=== PATIENT | female | born 1935 | race Caucasian/White ===

== ENCOUNTER → 2016-09-12 | Outpatient (CLI) | payer OTHER | LOC: BMCIMAGING 13:18 | PROVIDERS: ATTEND Internal Medicine | DX: Z12.31 Encounter for screening mammogram for malignant neoplasm of breast (principal); Z80.3 Family history of malignant neoplasm of breast | CPT/HCPCS: G0202 ==

== ENCOUNTER → 2016-09-14 | Outpatient (CLI) | payer OTHER | LOC: BMCIMAGING 09:24 | PROVIDERS: ATTEND Internal Medicine | DX: N60.02 Solitary cyst of left breast (principal) | CPT/HCPCS: 76641; G0206 ==

== ENCOUNTER → 2017-07-12 | Outpatient (CLI) | payer OTHER ==
[~2017-07-12] MED LIST: IOPAMIDOL (ISOVUE 370) 100 ML BTL IV ONE
== END ==
LOC: FIMAGING 14:36
PROVIDERS: ATTEND Internal Medicine
DX: R07.9 Chest pain, unspecified (principal); R06.02 Shortness of breath; R59.0 Localized enlarged lymph nodes; R91.8 Other nonspecific abnormal finding of lung field
CPT/HCPCS: 71275; Q9967

== ENCOUNTER → 2017-09-14 | Outpatient (CLI) | payer OTHER | LOC: BMCIMAGING 13:42 | PROVIDERS: ATTEND Internal Medicine | DX: Z12.31 Encounter for screening mammogram for malignant neoplasm of breast (principal) ==

== ENCOUNTER → 2017-10-19 | Outpatient (CLI) | payer OTHER | LOC: FIMAGING 14:52 → EEVIPCON 15:30 | PROVIDERS: ATTEND Internal Medicine | DX: R59.0 Localized enlarged lymph nodes (principal) ==

== ENCOUNTER → 2018-01-11 | Outpatient (CLI) | payer OTHER | LOC: BMCIMAGING 09:53 | PROVIDERS: ATTEND Physician Assistant | DX: M16.0 Bilateral primary osteoarthritis of hip (principal) ==

== ENCOUNTER → 2018-01-12 | Outpatient (CLI) | payer OTHER | LOC: FIMAGING 11:29 | PROVIDERS: ATTEND Physician Assistant | DX: M25.561 Pain in right knee (principal); M23.200 Derangement of unspecified lateral meniscus due to old tear or injury, right knee; M23.341 Other meniscus derangements, anterior horn of lateral meniscus, right knee ==

== ENCOUNTER 2018-02-01 12:09 | Emergency (ER) | payer OTHER ==
--- NOTE | 2018-02-01 13:29 | EDPHY ---
H & P Stated Complaint: Diarrhea with scant blood x 1week after colonoscopy, denies pain. Time Seen by Provider: 02/01/18 13:29 HPI/ROS: CHIEF COMPLAINT: Diarrhea, scant hematochezia following colonoscopy HISTORY OF PRESENT ILLNESS: Patient presents the ED with diarrhea for the past several days with a scant amount of hematochezia. She denies significant abdominal pain. The patient denies any vomiting or hematemesis. The patient reports her colonoscopy was uneventful aside from the removal of 1 polyp. She denies any respiratory symptoms. She denies additional acute complaints. 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 REVIEW OF SYSTEMS: A comprehensive 10 point review of systems is otherwise negative aside from elements mentioned in the history of present illness. Source: Patient - Personal History Current Tetanus/Diphtheria Vaccine: No - Medical/Surgical History Hx Asthma: No Hx Chronic Respiratory Disease: No Hx Diabetes: No Hx Cardiac Disease: No Hx Renal Disease: No Hx Cirrhosis: No Hx Alcoholism: No Hx HIV/AIDS: No Hx Splenectomy or Spleen Trauma: No Other PMH: hypothyroid, HCL. cholecystectomy, hernia repair - Social History Smoking Status: Former smoker - Physical Exam Exam: General Appearance: Alert, no distress Eyes: Pupils equal and round no pallor or injection ENT, Mouth: Mucous membranes moist Respiratory: There are no retractions, lungs are clear to auscultation Cardiovascular: Regular rate and rhythm Gastrointestinal: Minimal tenderness to palpation left lower quadrant, no peritoneal signs, no guarding Neurological: 5/5 strength all 4 extremities Skin: Warm and dry, no rashes Musculoskeletal: Neck is supple nontender Extremities: symmetrical, full range of motion Constitutional: Initial Vital Signs Temperature (C) 36.4 C 02/01/18 12:17 Heart Rate 72 02/01/18 12:17 Respiratory Rate 16 02/01/18 12:17 Blood Pressure 145/80 H 02/01/18 12:17 O2 Sat (%) 95 02/01/18 12:17 O2 Delivery Mode Room Air Allergies/Adverse Reactions: No Known Allergies Allergy (Verified 02/01/18 12:16) Home Medications: Medication Instructions Recorded Atorvastatin Calcium [Lipitor 20 20 mg PO DAILY@18 09/30/15 mg (*)] Levothyroxine [Synthroid 50 mcg 50 mcg PO DAILY06 09/30/15 (*)] Cholecalciferol Vit D3 [Vitamin D3 2,000 units PO DAILY 11/26/15 2000 units tab (OTC)] Herbals/Supplements -Info Only 1 ea PO DAILY 11/26/15 Multivitamins [Multivitamin (*)] 1 each PO DAILY 11/26/15 Trinity-3 Fatty Acids [Fish Oil 1000 2,000 mg PO DAILY 11/26/15 mg (*)] Timolol 0.5% [TIMOPTIC 0.5% (*)] 1 drops LEFTEYE BID 11/26/15 Vitamin B Complex [B Complex] 1 each PO DAILY 11/26/15 Eliquis 02/01/18 Medical Decision Making ED Course/Re-evaluation: The patient presents to the ED with several days of diarrhea. The patient thought she may have notice some blood. She has no complaints of pain. She has minimal tenderness on exam. Laboratory testing is unremarkable. The patient is heme-negative from below. At this point time I do feel the patient can use Imodium as needed for management of her symptoms. The patient will be discharged home with instructions to return to the ED increasing pain, increasing bleeding or other concerns. The patient was unable to produce a diarrheal stool sample after 3 hr in the ED. She will be discharged home with a lab slip and specimen cup 3:00 p.m.: Patient is re-evaluated in I find her abdominal examination to be benign. She would like to be discharged home and follow up with her primary care provider. Differential Diagnosis: Differential diagnosis considered includes diverticulitis, perforation, abscess , lower GI bleed - Data Points Laboratory Results: Laboratory Results 02/01/18 13:46 02/01/18 13:46 02/01/18 02/01/18 02/01/18 14:34 13:46 13:46 WBC 11.83 10^3/uL H 10^3/uL (3.80-9.50) RBC 4.59 10^6/uL 10^6/uL (4.18-5.33) Hgb 14.6 g/dL g/dL (12.6-16.3) Hct 42.7 % % (38.0-47.0) MCV 93.0 fL fL (81.5-99.8) MCH 31.8 pg pg (27.9-34.1) MCHC 34.2 g/dL g/dL (32.4-36.7) RDW 13.2 % % (11.5-15.2) Plt Count 221 10^3/uL 10^3/uL (150-400) MPV 11.1 fL fL (8.7-11.7) Neut % (Auto) 73.5 % % (39.3-74.2) Lymph % (Auto) 16.4 % % (15.0-45.0) Shannon % (Auto) 8.0 % % (4.5-13.0) Eos % (Auto) 1.4 % % (0.6-7.6) Baso % (Auto) 0.4 % % (0.3-1.7) Nucleat RBC Rel Count 0.0 % % (0.0-0.2) Absolute Neuts (auto) 8.69 10^3/uL H 10^3/uL (1.70-6.50) Absolute Lymphs (auto) 1.94 10^3/uL 10^3/uL (1.00-3.00) Absolute Monos (auto) 0.95 10^3/uL H 10^3/uL (0.30-0.80) Absolute Eos (auto) 0.17 10^3/uL 10^3/uL (0.03-0.40) Absolute Basos (auto) 0.05 10^3/uL 10^3/uL (0.02-0.10) Absolute Nucleated RBC 0.00 10^3/uL 10^3/uL (0-0.01) Immature Gran % 0.3 % % (0.0-1.1) Immature Gran # 0.03 10^3/uL 10^3/uL (0.00-0.10) Sodium 140 mEq/L mEq/L (135-145) Potassium 4.0 mEq/L mEq/L (3.3-5.0) Chloride 112 mEq/L H mEq/L (97-110) Carbon Dioxide 20 mEq/l L mEq/l (22-31) Anion Gap 8 mEq/L mEq/L (6-14) BUN 15 mg/dL mg/dL (7-23) Creatinine 0.8 mg/dL mg/dL (0.6-1.0) Estimated GFR > 60 Glucose 93 mg/dL mg/dL (70-100) Calcium 10.3 mg/dL mg/dL (8.5-10.4) Stool Occult Bld Scrn NEGATIVE (NEGATIVE) Departure - Departure Disposition: Home, Routine, Self-Care Clinical Impression: Diarrhea Condition: Good Instructions: Acute Diarrhea (ED) Additional Instructions: 1. Please return to the emergency department for any increasing pain, heavy bleeding or other concerns. 2. Please take Imodium as prescribed. 3. Please follow-up with your primary care provider for a recheck in the next 3- 4 days. 4. If you are able to collect a sample of diarrhea please bring it back to the lab with the prescription you have been given for formal testing. 5. Please have Dr. Camargo check the results of this study 1 day after you submit it. Referrals: Lexus Camargo MD [Primary Care Provider] - As per Instructions
[2018-02-01 14:06] LABS: PLATELET COUNT 221 10^3/uL (150-400)
[2018-02-01 15:09] VITALS: BP 137/67
== END 2018-02-01 15:08 | disposition home or self-care (01) ==
DX: R19.7 Diarrhea, unspecified (principal); K92.1 Melena

== ENCOUNTER → 2018-09-20 | Outpatient (CLI) | payer OTHER | LOC: BMCIMAGING 11:44 ==